=== PATIENT | male | born 1975 | race Caucasian/White ===

== ENCOUNTER 2021-05-10 22:53 | Emergency (ER) | payer BC, SELFPAY ==
[2021-05-10 22:56] VITALS: BP 126/77; PULSE 86; RESP 18; TEMP 37.9; O2SAT 96
[2021-05-10] MEDS: SODIUM CHLORIDE 0.9% IV 1,000 ML 999 ML IV CONT (23:31)
[2021-05-10] MEDS: KETOROLAC 30 MG/ML VIAL (*BKC) IV PUSH (23:32)
[2021-05-10 23:33] LABS: Basophils Percent Auto 0.6 % (0.2-1.2); Hematocrit 46.4 % (42.0-52.0); Hemoglobin 15.7 g/dL (14.0-18.0); Immature Granulocyte Absolute 0.01 K/mm3 (0.00-0.031); Immature Granulocyte Percent A 0.3 % (0-0.5); Lymphocytes Absolute Auto 0.84 K/mm3 (0.9-3.2); Mean Corpuscular HGB Conc 33.8 g/dl (32-36); Mean Corpuscular Hemoglobin 28.3 pg (26-34); Mean Corpuscular Volume 83.8 fl (80-100); Mean Platelet Volume 10.2 fl (7.4-10.4); Monocytes Absolute Auto 0.3 K/mm3 (0.1-0.6); Neutrophils Absolute Auto 2.1 K/mm3 (1.3-6.7); Neutrophils Percent Auto 64.1 % (45.5-73.1); Platelet Count Result 137 k/mm3 (150-375); Red Blood Count 5.54 M/mm3 (4.6-6.20); Red Cell Distribution Width 12.1 % (11.5-14.5); White Blood Count 3.2 K/mm3 (4.5-10.0)
[2021-05-10 23:43] LABS: Atypical Lymphocytes Present; Platelet Estimate Decreased (Adequate)
[2021-05-10 23:44] LABS: Anion Gap 11 mmol/L (8-16); Blood Urea Nitrogen 10 mg/dL (9-20); Calcium 9.1 mg/dL (8.4-10.2); Carbon Dioxide 22 mmol/L (22-30); Chloride 104 mmol/L (98-107); Estimated Glomerular Filt Rate > 60; Glucose 128 mg/dL (75-110); Sodium 137 mmol/L (137-145)
--- NOTE | 2021-05-10 23:46 | PC.NURSE ---
covid swab sent to lab at this time
--- NOTE | 2021-05-11 00:13 | ED.GENADULT ---
HPI - General Adult General Chief complaint: Unspecified Stated complaint: severe dehydation Time Seen by Provider: 05/10/21 22:57 History of Present Illness HPI narrative: Patient is a 45-year-old male who presents ER with concerns for dehydration. Reports over the last 4 days has been feeling fatigued and hot. He has been having episodes of sweats as well as body aches. 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 No known sick contacts. Found to be febrile here and patient had not been noted to be febrile over the last couple days. Patient has not been vaccinated against Covid. No loss of taste or smell. Denies sinus congestion or sore throat or productive cough. No exertional dyspnea. Related Data Home Medications Medication Instructions Recorded Confirmed No Home Medications 05/10/21 05/10/21 Allergies Allergy/AdvReac Type Severity Reaction Status Date / Time Iodinated Contrast Media Allergy Swelling Verified 05/10/21 23:01 of Lip/Tongue/Throat SHELLFISH Allergy Swelling Uncoded 05/10/21 23:01 of Lip/Tongue/Throat Review of Systems Review of Systems: All systems reviewed & are unremarkable except as noted in HPI and below Constitutional: Constitutional: Denies chills, Reports excessive sweating and Reports fever(s) ENT: Denies sinus pressure and Denies sore throat Respiratory: Respiratory: Reports no additional respiratory complaints PMFSH Past Medical History Medical History (Updated 05/11/21 @ 00:17 by Ivan Phillips MD) Healthy adult male Surgical History Surgical History (Updated 05/11/21 @ 00:15 by Ivan Phillips MD) No history of previous surgery Exam Narrative: Exam Narrative: GENERAL: Well-appearing, well-nourished, and in no acute distress. HEAD: Normocephalic, atraumatic. CHEST: Clear to auscultation. No respiratory distress. HEART: Regular rate and rhythm. Normal peripheral pulses. ABDOMEN: Soft, nontender, nondistended. EXTREMITIES: Normal range of motion. No edema. SKIN: Warm, dry, no rash. NEURO: Alert and oriented x3. PSYCH: Normal mood and affect. Course Course Emergency Course: Patient swabbed for Covid. Depressed white count which is concerning for possible Covid infection. Patient feels improved after Toradol and IV fluid. Requesting second liter of fluid which will be given. Vital Signs Vital signs: Vital Signs Temperature 100.2 F H 05/10/21 22:56 Pulse Rate 86 05/10/21 22:56 Respiratory Rate 18 05/10/21 22:56 Blood Pressure 126/77 05/10/21 22:56 Pulse Oximetry 96 05/10/21 22:56 Temperature 100.2 F H 05/10/21 22:56 Pulse Rate 86 05/10/21 22:56 Respiratory Rate 18 05/10/21 22:56 Blood Pressure 126/77 05/10/21 22:56 Pulse Oximetry 96 05/10/21 22:56 Medical Decision Making Vital Signs Vital Signs: Vital Signs Temperature 100.2 F H 05/10/21 22:56 Pulse Rate 86 05/10/21 22:56 Respiratory Rate 18 05/10/21 22:56 Blood Pressure 126/77 05/10/21 22:56 Pulse Oximetry 96 05/10/21 22:56 Temperature 100.2 F H 05/10/21 22:56 Pulse Rate 86 05/10/21 22:56 Respiratory Rate 18 05/10/21 22:56 Blood Pressure 126/77 05/10/21 22:56 Pulse Oximetry 96 05/10/21 22:56 Lab Data Result diagrams: 05/10/21 23:27 05/10/21 23:27 Labs: Lab Results 05/10/21 05/10/21 05/10/21 Range/Units 23:27 23:27 23:44 WBC 3.2 L (4.5-10.0) K/mm3 RBC 5.54 (4.6-6.20) M/mm3 Hgb 15.7 (14.0-18.0) g/dL Hct 46.4 (42.0-52.0) % MCV 83.8 (80-100) fl MCH 28.3 (26-34) pg MCHC 33.8 (32-36) g/dl RDW 12.1 (11.5-14.5) % Plt Count 137 L (150-375) k/mm3 MPV 10.2 (7.4-10.4) fl Immature Gran % (Auto) 0.3 (0-0.5) % Neut % (Auto) 64.1 (45.5-73.1) % Lymph % (Auto) 26.0 (18.3-44.2) % [place] % (Auto) 9.0 H (2.6-8.5) % Eos % (Auto) 0.0 (0-4.4) % Baso % (Auto) 0.6 (0.2-1.2) % Lymph #
[2021-05-11] MEDS: SODIUM CHLORIDE 0.9% IV 1,000 ML 999 ML IV CONT (00:17)
[2021-05-11 00:57] VITALS: BP 127/81; PULSE 80; RESP 18; TEMP 37.2; O2SAT 100
[2021-05-11 15:56] LABS: SARS-CoV-2 RNA PCR Negative
== END 2021-05-11 00:57 | disposition home or self-care (01) ==
PROVIDERS: Emergency Provider Emergency Medicine
DX: Z20.822 Contact with and (suspected) exposure to COVID-19 (principal); R53.83 Other fatigue
CPT/HCPCS: 36415; 80048; 85025; 96361; 96374; 99284; C9803; J1885; J7030; U0003; U0005